=== PATIENT | male | born 1965 | race Caucasian/White ===

== ENCOUNTER 2016-09-22 14:24 | Emergency (ER) | payer OTHER ==
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
--- NOTE | 2016-09-22 16:53 | ED ORDER SUMMARY ---
..... Patient: GALE KEBEDE OrderSheet [facility] VisitID: [id number] [address] [place] [address] 51y, M Registration Date/Time: 09/22/2016 ORDER SHEET Weight: 83.9 kg (stated) Allergies: None GENERAL ORDERS: Chest 1V Urgent (14:32 09/22/2016 Linda Slater) (Ack 14:34 TBergley) (14:43 KPamay-Keanu R.N.) CT Head wo Cont Urgent (14:32 09/22/2016 Linda Slater) (Ack 14:34 TBergley) (14:43 KPamay-Keanu R.N.) Cardiac Panel Stat (14:32 09/22/2016 Linda Slater) (Ack 14:34 TBergley) (14:43 KPamay-Keanu R.N.) D-Dimer Urgent (14:32 09/22/2016 Linda Slater) (Ack 14:34 TBergley) (14:43 KPamay-Keanu R.N.) UA-Culture if indicated Urgent (14:32 09/22/2016 Linda Slater) (Ack 14:34 TBergley) Urine Drug Screen Urgent (14:32 09/22/2016 Linda Slater) (Ack 14:34 TBergley) EKG - ER Stat (14:34 09/22/2016 Linda Slater) (Ack 14:37 TBergley) (14:57 TBergley) CTA Thorax w Cont (No) (25/1.2) (abnl CXR) Urgent (15:22 09/22/2016 Linda Slater) (Ack 15:23 TBergley) (Cancelled: Other15:26 TBergley) MEDICATION ORDERS: IV FLUIDS: IV NS : initial bolus none -, then 1000 mL/hr for X1 (NOW) (14:31 09/22/2016 Linda Slater) (14:43 KPamay-Keanu R.N.) ORDER SHEET NOTES: [Electronically signed by Megan Rosenberg R.N. (19:45 09/22/2016)] [Electronically signed by Eros Meyer Dr. (20:32 09/23/2016)] [Electronically locked/signed by Megan Rosenberg R.N. (:45 09/22/2016)]
--- NOTE | 2016-09-22 16:53 | ED ORDER SUMMARY ---
..... Patient: GALE KEBEDE OrderSheet [facility] VisitID: [id number] [address] [place] [address] 51y, M Registration Date/Time: 09/22/2016 ORDER SHEET Weight: 83.9 kg (stated) Allergies: None GENERAL ORDERS: Chest 1V Urgent (14:32 09/22/2016 Linda Slater) (Ack 14:34 TBergley) (14:43 KPamay-Keanu R.N.) CT Head wo Cont Urgent (14:32 09/22/2016 Linda Slater) (Ack 14:34 TBergley) (14:43 KPamay-Keanu R.N.) Cardiac Panel Stat (14:32 09/22/2016 Linda Slater) (Ack 14:34 TBergley) (14:43 KPamya-Keanu R.N.) D-Dimer Urgent (14:32 09/22/2016 Linda Slater) (Ack 14:34 TBergley) (14:43 KPamay-Keanu R.N.) UA-Culture if indicated Urgent (14:32 09/22/2016 Linda Slater) (Ack 14:34 TBergley) Urine Drug Screen Urgent (14:32 09/22/2016 Linda Slater) (Ack 14:34 TBergley) EKG - ER Stat (14:34 09/22/2016 Linda Slater) (Ack 14:37 TBergley) (14:57 TBergley) CTA Thorax w Cont (No) (25/1.2) (abnl CXR) Urgent (15:22 09/22/2016 Linda Slater) (Ack 15:23 TBergley) (Cancelled: Other15:26 TBergley) MEDICATION ORDERS: IV FLUIDS: IV NS : initial bolus none -, then 1000 mL/hr for X1 (NOW) (14:31 09/22/2016 Linda Slater) (14:43 KPamay-Keanu R.N.) ORDER SHEET NOTES: [Electronically signed by Megan Rosenberg R.N. (19:45 09/22/2016)] [Electronically signed by Eros Meyer Dr. (20:32 09/23/2016)] [Electronically locked/signed by Megan Rosenberg R.N. (:45 09/22/2016)]
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
--- NOTE | 2016-09-23 20:33 | ED MAR SUMMARY ---
..... Medication Administration Record [facility] [address] [place] [address] Patient: GALE KEBEDE Visit ID: [id number] 51y, M Weight: 83.9 kg Height/Length: 70 in BMI: 26.5 ALLERGIES: None Start 14:38 09/22/2016 Megan Rosenberg RBrenda, Stop 15:45 09/22/2016 Megan Rosenberg RBrenda Medication Administered: IV NS (SALINE), Dose: IV Fluids, Rate: 1000 mL/hr, Dispensed: 1000 mL bag, Site: #1. Medication Ordered: IV NS : initial bolus none -, then 1000 mL/hr for X1 (NOW).
--- NOTE | 2016-09-23 20:33 | ED MED RECONCILIATION SUMMARY ---
Patient: GALE KEBEDE Medication Reconciliation Report [facility] VisitID: [id number] [address] [place] [place] [address] 51y, M Registration Date/Time: 09/22/2016 Weight: 83.9 kg Height/Length: 70 in. BMI: 26.5 ALLERGIES: None The patient's Home Medications are listed below: THE FOLLOWING MEDICATIONS NEED TO BE RECONCILED: Kidney medicine The source(s) of the original Home Medication information: patient The following Medications were given to the patient in the Emergency Department: IV NS IV Fluids bolus 0, then 1000 mL/hr, administered: 09/22/2016 2:38:00 PM The following Medications were prescribed to the patient: None.
--- NOTE | 2016-09-23 20:33 | ED MED RECONCILIATION SUMMARY ---
Patient: GALE KEBEDE Medication Reconciliation Report [facility] VisitID: [id number] [address] [place] [place] [address] 51y, M Registration Date/Time: 09/22/2016 Weight: 83.9 kg Height/Length: 70 in. BMI: 26.5 ALLERGIES: None The patient's Home Medications are listed below: THE FOLLOWING MEDICATIONS NEED TO BE RECONCILED: Kidney medicine The source(s) of the original Home Medication information: patient The following Medications were given to the patient in the Emergency Department: IV NS IV Fluids bolus 0, then 1000 mL/hr, administered: 09/22/2016 2:38:00 PM The following Medications were prescribed to the patient: None.
--- NOTE | 2016-09-23 20:33 | ED MAR SUMMARY ---
..... Medication Administration Record [facility] [address] [place] [address] Patient: GALE KEBEDE Visit ID: [id number] 51y, M Weight: 83.9 kg Height/Length: 70 in BMI: 26.5 ALLERGIES: None Start 14:38 09/22/2016 Megan Rosenberg RBrenda, Stop 15:45 09/22/2016 Megan Rosenberg RBrenda Medication Administered: IV NS (SALINE), Dose: IV Fluids, Rate: 1000 mL/hr, Dispensed: 1000 mL bag, Site: #1. Medication Ordered: IV NS : initial bolus none -, then 1000 mL/hr for X1 (NOW).
--- NOTE | 2016-09-23 20:33 | ED DISCHARGE INSTRUCTIONS ---
Patient: GALE KEBEDE General Instructions [facility] VisitID: [id number] [address] [place] [address] 51y, M Registration Date/Time: 09/22/2016 Syncope of unknown cause .12 lead EKG performed. Moderate dehydration Multiple superficial abrasions to the left shoulder, left elbow and left knee. INSTRUCTIONS Apply ice for 20 minutes four times a day until better. Don't apply ice directly to skin. Drink plenty of fluids. Follow-up: Follow up with your doctor in about two days if not well. Call for an appointment. Screening today revealed the patient's blood pressure to be in the normal range. ADDITIONAL INFORMATION Fainting:Uncertain Cause Fainting (syncope) is a temporary loss of consciousness ("passing out"). It occurs when blood flow to the brain is reduced. Near-fainting ("near-syncope") is very similar to fainting, but you do not fully "pass out". The common minor causes of fainting include: sudden fear, pain, nausea, emotional stress and overexertion. Suddenly standing up after sitting or lying for a long time can also cause fainting. The more serious causes for fainting are due to either a very slow or very fast or very slow heart beat ("arrhythmia"), other types of heart disease, dehydration, blood loss, seizure, stroke or ruptured blood vessel in the brain. Taking too much high blood pressure medicine can also cause low blood pressure and fainting. The exact cause of your episode is not certain. However, the tests today did not show any of the serious causes of fainting. Sometimes further testing is needed to find out if a serious problem exists. Therefore, it is important that you follow-up with your doctor as advised. Home Care: 1) Rest today. You may resume your normal activities when you are feeling back to normal. It is best to remain with someone who can check on you for the next 24 hours to watch for another episode of fainting. 2) If you become light-headed or dizzy, lie down immediately or sit with your head between your knees. 3) Because we do not know the exact cause of your near fainting spell, it is possible for another spell to occur without warning. Therefore, do not drive a car or operate dangerous equipment, do not take a bath alone (use a shower instead) and do not swim alone until your doctor says that you are no longer in danger of having another fainting spell. Follow Up with your doctor as advised. Get Prompt Medical Attention if any of the following occur: -- Another fainting spell occurs, which is not explained by the common causes listed above -- Chest, arm, neck, jaw, back or abdominal pain -- Shortness of breath -- Severe headache or seizure -- Blood in vomit, stools (black or red color) -- Unexpected vaginal bleeding -- Palpitations (very rapid or very slow or irregular heart beat) -- Signs of stroke: Weakness of an arm or leg or one side of the face Difficulty with speech or vision Extreme drowsiness, confusion, dizziness or fainting Abrasions Abrasions are skin scrapes. Their treatment depends on how large and deep the abrasion is. Home Care: If you were given a bandage, change it once a day. If your bandage sticks to the wound, soak it in warm water until it loosens. Wash the area with soap and water to remove all the cream/ointment. You may do this in a sink, under a tub faucet or shower. Rinse off the soap and pat dry with a clean towel. Reapply cream/ointment according to your doctor's instructions. This will prevent infection and help prevent the bandage from sticking. Cover the wound with a fresh non-stick bandage (Telfa). Repeat steps 1 to 4 daily, or as directed by your doctor. If the bandage becomes wet or dirty, change it as soon as possible. You may use acetaminophen (Tylenol) or ibuprofen (Motrin, Advil) to control pain, unless another pain medicine was prescribed. [ NOTE : If you have chronic liver or kidney disease or ever had a stomach ulcer or GI bleeding, talk with your doctor before using these medicines.] Do not use ibuprofen in children under six months of age. Follow Up with your physician or this facility as directed by our staff. Most skin wounds heal within ten days. However, an infection may occur despite proper treatment. Therefore, look for the early signs of infection listed below. Get Prompt Medical Attention if any of the following occur: Increasing pain in the wound Increasing redness or swelling Pus coming from the wound Fever of 100.4F (38C) or higher, or as directed by your healthcare provider Dehydration (Adult) Dehydration occurs when your body loses too much fluid. This may be the result of vomiting a lot or from diarrhea,sweating a lot, or a high fever. It may also happen if you dont drink enough fluid when youre sick. Misuse of diuretics (water pills) can also be a cause. Symptoms include thirst and feeling dizzy, weak, fatigued, or very drowsy. The diet described below is usually enough to treat most cases. Sometimes you may needmedicine. Home Care Follow these guidelines for home care: Drink at least 12 8-ounce glasses of fluid every day to overcome the dehydration. Fluid may include water; orange juice; lemonade; apple, grape, and cranberry juice; clear fruit drinks; electrolyte replacement and sports drinks; and teas and coffee without caffeine. If you have been diagnosed with a kidney disease, ask your doctor how much and what types of fluids you should drink to prevent dehydration. If you have kidney disease, drinking too much fluid can cause it build up in the your body and be dangerous to your health. If you have fever, muscle aching, or headache from a viral syndrome, you may useacetaminophen or ibuprofen, unless another medicine was prescribed for this.If you have chronic liver or kidney disease or ever had a stomach ulcer or GI bleeding, talk with your doctor before using these medicines. Don't take aspirin if you are younger than 18 and are ill with a fever.Aspirin raises the chance forsevere liver injury. Follow-up care Follow up with your health care provider if you don't get better in the next 24 to 48 hours. When to seek medical care Get prompt medical attention if any of theseoccur: Continued vomiting (cant keep liquids down) Frequent diarrhea (more than 5 times a day); blood (red or black color) or mucus in diarrhea Blood in vomit or stool Swollen abdomen or increasing abdominal pain Weakness, dizziness, or fainting Unusually drowsy or confused Reduced urine output or extreme thirst Fever of 100.4 F (38 C) oral or higher that does not get better with fever medication You have been given the following additional information: Syncope, Unk Cause Abrasion Dehydration (Adult) (Electronically signed by Eros Meyer Dr. 09/23/2016 20:32)
== END 2016-09-22 17:03 | disposition home or self-care (01) ==
LOC: ED SRH 14:24
DX: R55 Syncope and collapse (principal); E86.0 Dehydration; S40.212A Abrasion of left shoulder, initial encounter; S50.312A Abrasion of left elbow, initial encounter; S80.212A Abrasion, left knee, initial encounter; X58.XXXA Exposure to other specified factors, initial encounter; Y93.55 Activity, bike riding; Y92.9 Unspecified place or not applicable; Y99.9 Unspecified external cause status
CPT/HCPCS: 90100; 90616; 91556; 92610; 92720; 95059